=== PATIENT | female | born 1985 | race Caucasian/White ===

== ENCOUNTER 2023-11-20 09:05 | Day surgery (SDC) | payer OTHER, SELFPAY ==
[2023-11-20] VITALS (15 sets, daily range): BP systolic 113–137; BP diastolic 7–88; PULSE 59–98; RESP 13–18; TEMP 36.6–36.7; O2SAT 98–100
--- NOTE | ~2023-11-20 | US_ITS ---
Limited ABDOMINAL ULTRASOUND Ordering provider: Tonio De León APRN History: . possible acute cholecystitis . Comparison: None. FINDINGS: LIVER: Normal size and echotexture. No focal hepatic lesions or perihepatic fluid collections are clarke ntified. Portal vein flow is hepatopetal GALLBLADDER: Cholelithiasis. Stone is seen measuring 1.2 x 0.6 x 1.4 cm. The wall thickness is 3.7 mm . A negative sonographic Lopez's sign was noted. BILIARY DUCTS: No evidence for intra or extrahepatic biliary dilation. Common bile duct measures 5 mm in diameter which is within normal limits. PANCREAS: Partially seen. Visualized portion is normal. SPLEEN: Normal size, echotexture and contour and mauricio UPPER ABDOMINAL AORTA: Normal in caliber. IVC: Patent. FREE FLUID: None. IMPRESSION: Cholelithiasis with no definite cholecystitis. Reviewed, dictated and finalized at location A.
--- NOTE | ~2023-11-20 | CT_ITS ---
CT of the Abdomen and Pelvis: Indication: Abdominal pain Technique: 2.5 mm axial scans were obtained through the abdomen and pelvis following intravenous adm inistration of 100 cc of Omnipaque 350. Dose reduction technique was used on this scan by utilizing a utomated exposure control and iterative reconstruction technique. The dose-length product (DLP) was 5 46.02 mGy-cm. Findings: Scans through the lung bases are unremarkable. The liver, spleen, pancreas, adrenals and kidneys are within normal limits. Probably mild gallbladder wall thickening. No evidence of aortic aneurysm. No lymphadenopathy. No bowel obstruction or bowel wall thickening. There is no evidence to suggest acute appendicitis. Images through the pelvis were performed. Urinary bladder unremarkable. No pelvic mass seen. No ascit es. Impression: Suspected mild gallbladder wall thickening. Consider acute cholecystitis. Consider HIDA scan and/or u ltrasound to further evaluate the gallbladder. Reviewed, dictated and finalized at [facility]. Impression: Suspected mild gallbladder wall thickening. Consider acute cholecystitis. Consi nubia HIDA scan and/or ultrasound to further evaluate the gallbladder.
--- NOTE | 2023-11-20 09:27 | ED.ABDPAIN ---
HPI - Abdominal Pain General Chief Complaint: Abdominal Pain <Tonio De León APRN - Last Filed: 11/20/23 13:40> Stated Complaint: abd pain <Tonio De León APRN - Last Filed: 11/20/23 13:40> Time Seen by Provider: 11/20/23 09:17 <Tonio De León APRN - Last Filed: 11/20/23 13:40> Source: patient <Tonio De León APRN - Last Filed: 11/20/23 13:40> Mode of arrival: ambulatory <Tonio De León APRN - Last Filed: 11/20/23 13:40> Limitations: no limitations <Tonio De León APRN - Last Filed: 11/20/23 13:40> History of Present Illness HPI narrative: Nevaeh is a 38-year-old female patient presenting to the ER today with complaints of generalized abdominal pain that started at 12:30 a.m. this morning. She reports the pain is a pressure pain in the abdomen and is radiating into her back and is stabbing on the right side. Rates her pain currently a 7/10. She denies any history of any abdominal surgery but does have a past medical history of a T&A, sinuplasty, 2 vaginal bursa, and GERD. She does report nausea associated with this abdominal pain however she has had no vomiting or diarrhea. She denies any fever or urinary symptoms as well. Last bowel movement was this morning and states that that was normal for her other was no blood in her stool. Last menstrual period was November 11, 2023. <Tonio De León APRN - Last Filed: 11/20/23 13:40> Related Data Allergies/Adverse Reactions: Allergies Allergy/AdvReac Type Severity Reaction Status Date / Time No Known Allergies Allergy Mild Unverified 08/06/11 17:20 <Tonio De León APRN - Last Filed: 11/20/23 13:40> Review of Systems Review of Systems: Pertinent positives per HPI. Patient denies any fever, chills, rash, headache, visual changes, dizziness, cough, runny nose, sore throat, shortness of breath, chest pain, palpitations,vomiting, diarrhea, constipation or any urinary issues. <Tonio De León APRN - Last Filed: 11/20/23 13:40> PMFSH Comments At the time of my signature, I reviewed and agree with the nursing past medical, surgical, social, and family history. There is no relevant family history pertinent to the patient complaint. <Tonio De León APRN - Last Filed: 11/20/23 13:40> Exam Narrative: General: Well-developed, well nourished, in no apparent distress. Head: Normocephalic, atraumatic. Cardio: Regular rate and rhythm, s1 and s2 normal, no murmur appreciated. Resp: Clear to auscultation bilaterally, no rhonchi, rales, wheezing or rubs. Abdomen: Soft, pliable, non-distended, bowel sounds present in all quadrants, generalized tender to palpation, ttp over right lower back/flank no organomegly, no CVAT tenderness. <Tonio De León APRN - Last Filed: 11/20/23 13:40> Course Course Emergency Course: Portions of this record may have been created with voice recognition software. <Tonio De León APRN - Last Filed: 11/20/23 13:40> MELTER SUPERVISOR [employer]CE/PA Physician Supervision This visit was performed by both a physician and an APC. I performed all aspects of the MDM as documented. <Yung Zepeda MD - Last Filed: 11/20/23 18:57> Vital Signs Vital signs: Vital Signs Temperature 98.0 F 11/20/23 09:14 Pulse Rate 98 11/20/23 09:14 Respiratory Rate 18 11/20/23 09:14 Blood Pressure 137/83 11/20/23 09:14 Pulse Oximetry 99 11/20/23 09:14 Oxygen Delivery Room Air 11/20/23 09:14 Temperature 97.8 F 11/20/23 14:00 Pulse Rate 78 11/20/23 14:00 Respiratory Rate 18 11/20/23 14:00 Blood Pressure 127/74 11/20/23 14:00 Pulse Oximetry 100 11/20/23 14:00 Oxygen Delivery Room Air 11/20/23 14:00 Vital signs reviewed <Tonio De León APRN - Last Filed: 11/20/23 13:40> Vital Signs Temperature 98.0 F 11/20/23 09:14 Pulse Rate 98 11/20/23 09:14 Respiratory Rate 18 11/20/23 09:14 Blood Pressure 137/83 11/19
[2023-11-20] MEDS: ONDANSETRON INJ 4 MG/2 ML VIAL IV PUSH ×2 (09:55→12:45)
[2023-11-20] MEDS: MORPHINE SULFATE (*CRX) 4 MG/ML INJ IV PUSH ×2 (09:55→12:45)
[2023-11-20 09:59] LABS: Basophils Percent Auto 0.6 % (0.2-1.2); Eosinophils Absolute Auto 0.1 K/mm3 (0-0.3); Eosinophils Percent Auto 1.9 % (0-4.4); Hematocrit 42.5 % (37.0-47.0); Hemoglobin 13.8 g/dL (12.0-15.0); Immature Granulocyte Absolute 0.01 K/mm3 (0.00-0.031); Immature Granulocyte Percent A 0.1 % (0-0.5); Lymphocytes Absolute Auto 2.68 K/mm3 (0.9-3.2); Lymphocytes Percent Auto 37.1 % (18.3-44.2); Mean Corpuscular HGB Conc 32.5 g/dl (32-36); Mean Corpuscular Hemoglobin 27.8 pg (26-34); Mean Corpuscular Volume 85.5 fl (80-100); Mean Platelet Volume 10.5 fl (7.4-10.4); Monocytes Absolute Auto 0.3 K/mm3 (0.1-0.6); Monocytes Percent Auto 4.7 % (2.6-8.5); Neutrophils Percent Auto 55.6 % (45.5-73.1); Platelet Count Result 322 k/mm3 (150-375); Red Blood Count 4.97 M/mm3 (4.2-5.4); Red Cell Distribution Width 13.5 % (11.5-14.5); White Blood Count 7.2 K/mm3 (4.5-10.0)
[2023-11-20 10:01] LABS: Appearance Urine Clear (Clear); Bilirubin Urine Negative (Negative); Blood Urine Negative (Negative); Color Urine Yellow (Yellow); Glucose Urine UA Negative (Negative); Ketones Urine Negative (Negative); Leukocyte Esterase Ur Negative LEU/UL (Negative); Nitrate Urine Negative (Negative); Protein Urine Negative (Negative); Specific Grav Ur 1.008 (1.001-1.035); Urobilinogen Urine 0.2 mg/dL (<2.0); pH Urine 7.5 (5.0-9.0)
[2023-11-20 10:05] LABS: Add Urine Microscopic? NO
[2023-11-20 10:13] LABS: Alanine Aminotransferase 22 U/L (6-35); Albumin Level 4.8 g/dL (3.5-5.1); Alkaline Phosphatase 89 U/L (38-126); Anion Gap 9 mmol/L (4-12); Aspartate Amino Transferase 25 U/L (14-36); Bilirubin,Total 0.7 mg/dL (0.2-1.3); Blood Urea Nitrogen 9 mg/dL (7-17); Calcium 10.1 mg/dL (8.4-10.2); Carbon Dioxide 28 mmol/L (22-30); Chloride 102 mmol/L (98-107); Estimated CRCL calculation 110 ml/min; Estimated Glomerular Filt Rate > 60; Glucose 98 mg/dL (65-110); Lipase 47 U/L (23-300); Potassium 3.8 mmol/L (3.4-5.0); Sodium 139 mmol/L (137-145)
--- NOTE | 2023-11-20 13:28 | PM.HPGS ---
History of Present Illness History of Present Illness Consent: Risks, benefits, and alternatives have been discussed and questions answered. Patient agrees to proceed with procedure. Chief complaint: abd pain Narrative: Nevaeh Lerner is a 38 year old female who presented to the ER today with complaints of RUQ abdominal pain x 12 hours. Pain radiates across her entire abdomen and into her mid upper back. She has a history of GERD and reports this is much different than her reflux symptoms. She reports nausea, but no vomiting. Pain is aggravated by deep breathing. She had a similar episode of pain that brought her into the ER about 13 years ago, but not since. She reports eating spicy chicken yesterday around 3pm and then breakfast cookies before bed. She woke up around midnight with abdominal pain that got worse throughout the morning. She came into the ER for evaluation. Labs in the ER were unremarkable. CT scan abdomen and pelvis showed mild gallbladder wall thickening, possible acute cholecystitis. RUQ US showed cholelithiasis with a gallstone measuring up to 1.4 cm, no definite evidence of cholecystitis. Our service was consulted by the ED physician as she was having persistent pain even after receiving IV morphine. No previous abdominal surgeries. Review of Systems Review of Systems: All systems reviewed & are unremarkable except as noted in HPI and below Meds Home Medications and Allergies Allergies Allergy/AdvReac Type Severity Reaction Status Date / Time No Known Allergies Allergy Mild Unverified 08/06/11 17:20 Vital Signs Vital Signs - 24 hr 11/20/23 09:14 11/20/23 09:55 11/20/23 10:40 Temperature 98.0 F Pulse Rate 98 82 80 Respiratory Rate 18 18 18 Blood Pressure 137/83 132/75 130/78 Pulse Oximetry 99 100 98 Oxygen Delivery Room Air 11/20/23 11:22 Temperature 98.1 F Pulse Rate 78 Respiratory Rate 18 Blood Pressure 123/7 L Pulse Oximetry 98 Oxygen Delivery Exam Const: General: comfortable and no acute distress Nutritional Appearance: average body habitus Orientation/consciousness: patient oriented x3 HENMT: Head: normocephalic and atraumatic Ears: hearing grossly normal bilaterally Mouth: Yes moist mucous membranes Eyes: General: appearance normal, both eyes and all related structures Pupils: Equal, round and reactive pupils present Neck: Neck: normal visual inspection and full ROM Resp: Effort & Inspection: no respiratory distress Auscultation: clear to auscultation bilaterally Cardio: Rate: regular rate Rhythm: regular rhythm Heart sounds: S1 normal heart sound present and S2 normal heart sound present Peripheral pulses: Peripheral pulses 2+ throughout GI: Inspection: non-distended, no scars and no visible herniation GI Palp: Yes Soft to palpation, Yes Tenderness to palpation present (GI) (RUQ), Yes Guarding due to palpation present (GI) (RUQ), Yes No hepatosplenomegaly present, No Rebound tenderness present and Yes Other GI palpation findings present (+Lopez's sign) Percussion: Yes normal to percussion Auscultation: normal bowel sounds Skin: General skin exam: normal color Neuro: General: moves all extremities and no focal motor deficits Speech: normal speech Motor exam (neuro): 5/5 motor strength present throughout Extrem: General: normal to inspection and no edema Psych: Mental Status: mental status grossly normal Attitude: cooperative Insight: Good insight present (Psych) Judgement: Good judgement present (Psych) Results Results Additional studies: ITS Impressions Abdomen/Pelvis CT 11/20/23 11:12 Impression: Suspected mild gallbladder wall thickening. Consider acute cholecystitis. Consider HIDA scan and/or ultrasound to further evaluate the gallbladder. Abdomen Ultrasound 11/20/23 12:40 IMPRESSION: Cholelithiasis with no definite cholecystitis. Assessment and Plan Assessment and plan (1) Cholelithiasis: Qualifiers: Bili
--- NOTE | 2023-11-20 13:44 | WPDANESEPPF ---
Anes - Initial Pre Proc Eval Procedure: Operation Date: 11/20/23 14:00 Proposed Procedures p Laparoscopic Cholecystectomy - Nathalie Pham MD Date/Time: 11/20/23 13:44 Surgeon: Nathalie Pham MD Pre Op Diagnosis: abd pain Patient Data Age: 38 Gender: F Height: 1.57 m Weight: 83.3 kg Last Vital Signs Temp 98.0 F 11/20/23 13:32 Pulse 78 11/20/23 13:32 Resp 18 11/20/23 13:32 BP 124/88 11/20/23 13:32 Pulse Ox 99 11/20/23 13:32 O2 Del Method Room Air 11/20/23 09:14 Allergies Allergy/AdvReac Type Severity Reaction Status Date / Time No Known Allergies Allergy Mild Unverified 08/06/11 17:20 Laboratory Tests 11/20/23 09:51 WBC 7.2 K/mm3 (4.5-10.0) RBC 4.97 M/mm3 (4.2-5.4) Hgb 13.8 g/dL (12.0-15.0) Hct 42.5 % (37.0-47.0) MCV 85.5 fl (80-100) MCH 27.8 pg (26-34) MCHC 32.5 g/dl (32-36) RDW 13.5 % (11.5-14.5) Plt Count 322 k/mm3 (150-375) MPV 10.5 H fl (7.4-10.4) Immature Gran % (Auto) 0.1 % (0-0.5) Neut % (Auto) 55.6 % (45.5-73.1) Lymph % (Auto) 37.1 % (18.3-44.2) [place] % (Auto) 4.7 % (2.6-8.5) Eos % (Auto) 1.9 % (0-4.4) Baso % (Auto) 0.6 % (0.2-1.2) Lymph # (Auto) 2.68 K/mm3 (0.9-3.2) [place] # (Auto) 0.3 K/mm3 (0.1-0.6) Eos # (Auto) 0.1 K/mm3 (0-0.3) Baso # (Auto) 0.0 K/mm3 (0.0-0.1) Abs Immat Gran (auto) 0.01 K/mm3 (0.00-0.031) Absolute Neuts (auto) 4.0 K/mm3 (1.3-6.7) Absolute Nucleated RBC 0.000 K/mm3 (0.0-0.012) Nucleated RBC % 0.0 % (0.0-0.2) Sodium 139 mmol/L (137-145) Potassium 3.8 mmol/L (3.4-5.0) Chloride 102 mmol/L (98-107) Carbon Dioxide 28 mmol/L (22-30) Anion Gap 9 mmol/L (4-12) BUN 9 mg/dL (7-17) Creatinine 0.60 L mg/dL (0.7-1.0) Estim Creat Clear Calc 110 ml/min Estimated GFR > 60 (59 - ) Glucose 98 mg/dL (65-110) Calcium 10.1 mg/dL (8.4-10.2) Total Bilirubin 0.7 mg/dL (0.2-1.3) AST 25 U/L (14-36) ALT 22 U/L (6-35) Alkaline Phosphatase 89 U/L (38-126) Total Protein 8.0 g/dL (6.3-8.2) Albumin 4.8 g/dL (3.5-5.1) Lipase 47 U/L (23-300) Urine Color Yellow (Yellow) Urine Appearance Clear (Clear) Urine pH 7.5 (5.0-9.0) Ur Specific [place] 1.008 (1.001-1.035) Urine Protein Negative mg/dL (Negative) Urine Glucose (UA) Negative mg/dL (Negative) Urine Ketones Negative mg/dL (Negative) Ur Blood (Man) Negative (Negative) Urine Nitrate Negative (Negative) Urine Bilirubin Negative (Negative) Urine Urobilinogen 0.2 mg/dL (<2.0) Leukocyte Esterase Rfl Negative SHARI/UL (Negative) Patient hx anesthesia problems: none Family hx anesthesia problems: none Results Review: All pre-operative results and documents have been reviewed as part of the pre-operative evaluation. Anes - Eval Final PreProcedure Day of Procedure 11/20/23 13:44 Patient weight: overweight Heart: regular rate and rhythm Lungs: clear to auscultation Airway: Mallampati scale class II Neurological: alert and oriented Last oral intake: >/= 8 hours ASA classification: II Emergent: no Anesthetic plan: proceed Anesthesia type and monitoring: general ETT and standard monitoring Results Review: All pre-operative results and documents have been reviewed as part of the pre-operative evaluation. Pt active w [employer] workouts, no cp or sob. Informed Consent: The patient's anesthetic plan and its attendant risks and benefits were discussed with the patient/family/POA. Questions were solicited and answers provided to the satisfaction of the patient/family/POA.
[2023-11-20] MEDS: LACTATED RINGERS 1,000 ML 30 ML IV CONT ×2 (14:00→18:30)
[2023-11-20] MEDS: SCOPOLAMINE 1 MG PATCH 1 PATCH TRANSDERM (14:00)
[2023-11-20] MEDS: fentaNYL CITRATE INJ (*CRX) 100 MCG/2 ML VIAL 50 MCG IV PUSH (15:34)
--- NOTE | 2023-11-20 16:27 | SUR.PREOP ---
1600: patient sleeping. family at bedside. notified of procedural wait time. family voices understanding.
--- NOTE | 2023-11-20 16:37 | WPDHPUPDATE1 ---
History and Physical Update Update Date/Time: 11/20/23 16:37 History and Physical has been reviewed, including an updated exam of the patient. There are NO changes in the patient's condition. Risks, benefits, and alternatives have been discussed and questions answered. Patient agrees to proceed with procedure.
--- NOTE | 2023-11-20 17:26 | SUR.PREOP ---
1725: patient sleeping. family at bedside. notified of procedural wait time. family voices understanding.
--- NOTE | 2023-11-20 17:44 | SUR.PREOP ---
Pt. ambulated to bathroom at 1740 and voided unmeasured amount.
[2023-11-20] MEDS: ceFAZolin 2 GM/D5W 50 ML 2 GM/50 ML BAG IVPB (18:13)
[2023-11-20] MEDS: LIDOCAINE HCL 1% LOCAL INJ 20 ML VIAL 30 ML INFILTRATE (18:46)
[2023-11-20] MEDS: BUPIVACAINE/EPINEPHRINE 0.5% 10 ML VIAL 30 ML INFILTRATE (18:46)
[2023-11-20] MEDS: KETOROLAC 30 MG/ML VIAL (*BKC) IV PUSH (19:03)
--- NOTE | 2023-11-20 19:45 | W.PM.PROC2 ---
Procedure Note - Detailed Date of Procedure 11/20/23 Pre-op Diagnosis Acute cholecystitis secondary to cholelithiasis Post-op Diagnosis Same Procedure Performed Laparoscopic cholecystectomy Surgeon Eder Godfrey MD Anesthesia General Indications Patient is a 8-year-old female presented with complaints of right upper quadrant epigastric abdominal pain for about 24hours. Workup in emergency room showed acute cholecystitis. Patient showed gallstones. She presents now for an urgent laparoscopic cholecystectomy. Findings Gallbladder was distended and had mild acute inflammation and edema with some minimal redness. Gallstones were noted within the gallbladder. Description of Procedure After informed consent was obtained patient brought to the operating room she was placed supine position and general endotracheal anesthesia was administered. The abdomen was then prepped and draped in usual sterile fashion and a time-out was then performed correctly identifying the patient as well as the procedure to be performed verifying he was given antibiotics. I then entered the abdomen left upper quadrant utilizing a 5mm Optiview port. Once inside the abdomen insufflated to adequate pneumoperitoneum of 15mmHg of CO2. I could see the adhesions around the umbilicus I placed a 5mm umbilical trocar port and then the laparoscopic switched over to this port site. Looking the upper portions of the abdomen then placed in the epigastric 10mm trocar port and 2 right lateral subcostal 5mm trocar ports all under direct visualization the gallbladder was distended and had some mild edema and slight erythema to the gallbladder wall. With a laparoscopic grasper I was able to hold the gallbladder at the dome and elevate the gallbladder over the right half of the towards the right shoulder. Second grasper was used to hold the gallbladder at the infundibulum. I then proceeded to strip down the visceroperitoneum of the gallbladder until I identified the cystic duct. Cystic duct was then dissected out circumferentially. Cystic artery was identified and was circumferentially dissected out as well. Posterior wall the gallbladder at the infundibulum was then dissected off the liver into the critical view was obtained. At this point I then placed 2 clips proximally cystic duct and 2 clips distally high on infundibular gallbladder. Cystic duct was then divided Endo Sandi. In similar fashion cystic artery clipped and divided as well. Gallbladder was then resected off liver electrocautery. No bile or gallstones were spilled. I then placed the gallbladder into an Endo-Catch bag and brought out through the epigastric port site. Gallbladder and contents were sent to pathology for examination. I then irrigated out the right upper quadrant abdomen gallbladder fossa with copious amounts and sterile saline solution. Hemostasis was excellent. There is no evidence of bile leak. I then aspirated the fluid from the right upper quadrant the abdomen from the pelvis. I then removed all the trocar ports under visualization all port sites appeared hemostatic. I then allowed the abdomen decompress. I then irrigated the port sites sterile saline solution hemostasis was good. I then closed the epigastric 10mm trocar port fascial defect utilizing 0 Vicryl suture. The skin incision all the port sites were then approximated utilizing a running subcuticular 4-0 Monocryl suture. The incisions were then cleaned the skin glue sterile dressings were applied. The patient tolerated the procedure well no complications. All sponges, needles, and instrument counts were correct at the end procedure. EBL was _ 25 __cc. The patient was awakened and taken to recovery in stable and satisfactory condition. Implants None Estimated Blood Loss 25 Drains No Packing No Pathology Yes (Gallbladder and gallstones sent to pathology) Complications No immediate complications Condition Stable Disposition PACU JENNIFER Doan
[2023-11-20] MEDS: fentaNYL CITRATE INJ (*CRX) 100 MCG/2 ML VIAL 25 MCG IV PUSH (19:55)
--- NOTE | 2023-11-20 20:54 | SUR.PHASEII ---
MD Romero contacted about pt request for pain pill prior to discharge. New orders for RN To give 5mg oxycodone PO once.
[2023-11-20] MEDS: oxyCODONE HCL (*CRX) 5 MG TAB IR PO (20:59)
== END 2023-11-20 21:26 | disposition home or self-care (01) ==
LOC: ANHED 12:54 → ANHSURGERY 13:04
PROVIDERS: Surgery; Emergency Provider Nurse Practitioner Family; Visit Provider Surgery
PROC: 0FT44ZZ Resection of Gallbladder, Percutaneous Endoscopic Approach (ICD-10-PCS; CPT 47562; principal; 2023-11-20 14:00)
DX: K80.10 Calculus of gallbladder with chronic cholecystitis without obstruction (principal); K21.9 Gastro-esophageal reflux disease without esophagitis
CPT/HCPCS: 47562; 36415; 74177; 76705; 80053; 81003; 81025; 83690; 85025; 88304; 96374; 96375; 96376; 99285; A9270; J0690; J1100; J1596; J1885; J2250; J2270; J2405; J2704; J2710; J3010; J7030; J7120; Q9967

== ENCOUNTER 2025-04-17 12:31 | Emergency (ER) | payer OTHER, SELFPAY ==
--- OUTSIDE RECORDS SUMMARY | 2001-03-24 03:30 | XMS_ITS | Continuity of Care Document ---
Author Organization [facility] Address [address] [place] [address] Phone Care Team Providers Care Unemployment Insurance Director Name Role Phone Fabien Sargent DO Unavailable Unavailable Advance Directives Directive Yes / No Effective Date File Name No Information Encounters Encounter Description Practice Location Reason(s) For Visit Diagnoses Date Provider Providers Copied on Encounter [facility], [address], [place], [place], [id number], tel:[phone] [facility] No Information Arie George. [address] [place], [address], . tel: [phone] Family History Family Member Type Diagnosis Age At Onset No Information Payers Payer name Insurance type Covered democrat ID Authoriza tion(s) No Information Social History Type Description Quantity Date Captured Comments Sex Female Smoking Status No Information Chief Complaint And Reason For Visit No Information Reason For Referral Reason For Referral No Information History Of Present Illness Encounter Date Complaint History Of Prese nt Illness No Information Functional Status Date Functional Assessmen t No Information Instructions Date Instruction Additional Infor mation No Information Assessments Type Assessment Date No Information Patient Care Teams Name Effective Dates (start - stop) Status Members No Information
--- OUTSIDE RECORDS SUMMARY | 2001-03-24 03:30 | XMS_ITS | Continuity of Care Document ---
Author Organization [facility] Address [address] [place] [address] Phone Care Team Providers Care Telegraph Operator Name Role Phone Fabien Sargent DO Unavailable Unavailable Advance Directives Directive Yes / No Effective Date File Name No Information Encounters Encounter Description Practice Location Reason(s) For Visit Diagnoses Date Provider Providers Copied on Encounter [facility], [address], [place], [place], [id number], tel:[phone] [facility] No Information Arie George. [address] [place], [address], . tel: [phone] Family History Family Member Type Diagnosis Age [...]
[2025-04-17] VITALS (11 sets, daily range): BP systolic 90–165; BP diastolic 65–91; PULSE 88–115; RESP 15–20; TEMP 36.9; O2SAT 98–100
--- NOTE | ~2025-04-17 | XR_ITS ---
EXAMINATION: XR chest 2V, 04/17/2025 15:15 TIRE REPAIRMAN HISTORY: palpitations COMPARISON: No comparisons available. Technique: 2 views obtained. Findings: The lungs are clear, no effusion. No pneumothorax. Heart is normal size. Mediastinal and hilar contours are within normal limits. Bony thorax no acute abnormality. Impression: No acute cardiopulmonary abnormality. Reviewed, dictated and finalized at location P. REPAIRMAN Impression: No acute cardiopulmonary abnormality.
--- NOTE | ~2025-04-17 | CT_ITS ---
EXAMINATION: CTA chest PE protocol DATE: 04/17/2025 18:30 LOOM TECHNICIAN INDICATION: Chest pain TECHNIQUE: Computed tomographic angiography (CTA) of the chest was performed with 100 mL Omnipaque-350 intravenous contrast. The dose-length product was 272.56 mGy-cm. Maximum intensity projection 3D-reconstructions of the aorta and other arteries were constructed by the technologist on a separate workstation. COMPARISON: None. FINDINGS: No significant pleural or pericardial effusion. Study is technically adequate without evidence for pulmonary embolism. Heart size normal. No thoracic lymphadenopathy. No significant abnormality of the aorta. No aneurysm or dissection. Status post cholecystectomy. Fatty infiltration of the liver. No endobronchial lesions. No focal airspace consolidation. No pneumothorax. Mild thoracic spondylosis. IMPRESSION: 1. No acute cardiopulmonary disease. No evidence for pulmonary embolism. Reviewed, dictated and finalized at location O. TECHNICIAN
--- NOTE | 2025-04-17 14:39 | ECG_ITS ---
Test Date: 2025-04-17 15:09:09 [address] [place] Rate: 98 P: 40 GA: 128 QRS: 1 QRSD: 89 T: 14 QT: 333 QTc: 426 Interpretive Statements SINUS RHYTHM No previous ECG available for comparison Electronically Signed On 04-17-2025 17:59:16 [employer]A [employer]OOK by Rashid Huerta D.O
--- NOTE | 2025-04-17 14:39 | ED.ARRPALP ---
HPI - Arrhythmia/Palpitations General Chief Complaint: Arrhythmia/Palpitations Stated Complaint: multiple medical complaints Time Seen by Provider: 04/17/25 14:39 Focused HPI: This is a 39 year old female that presents to the ER for increased anxiety. Reports tingling in her hands and feet, dizziness, palpitations. Ongoing over the last couple of weeks. Reports she has been taken off of her anxiety medication recently. But has restarted it the last couple of days. Reports recent travel to [facility]. GENERAL: Well-appearing, well-nourished, and in no acute distress. HEAD: Normocephalic, atraumatic. CHEST: Clear to auscultation. ?No respiratory distress. HEART: Regular rate and rhythm.? NEURO: ?Alert and oriented x3. Patient screened in triage and initial orders placed.? ?Additional care and disposition to be based upon?diagnostic testing and treatment. Related Data Home Medications ?Medication ?Instructions ?Recorded ?Confirmed ?Last Taken ?Type bupropion HCl 150 mg 24 hr tablet, 150 mg PO QAM 12/06/23 12/06/23 Unknown History extended release risankizumab-rzaa 180 mg/1.2 mL mg subcut 12/06/23 12/06/23 Unknown History (150 mg/mL) subcut wearable injector (Skyrizi) Allergies Allergy/AdvReac Type Severity Reaction Status Date / Time No Known Allergies Allergy Mild Verified 04/17/25 13:04 [facility] Past Medical History Medical History (Updated 04/17/25 @ 14:40 by Alee Zimmerman PA-C) Anxiety Psoriasis Surgical History Surgical History (Updated 12/06/23 @ 14:42 by Edilia Castellanos CMA) Hx laparoscopic cholecystectomy 11/20/23 Dr. Eder Godfrey Social History Social History (Updated 12/06/23 @ 14:42 by Edilia Castellanos CMA) Do You Feel Safe in your Home?: Yes Lack of Transportation: No Lack of Food: Never True Current Housing: I Have Housing Concerned About Future Housing: No Difficulty Paying Gas/Electric Bills: No Difficulty Paying for Meds: No Currently Unemployed: No Education: Bachelor's Degree Difficulty w/ Childcare or Family Care: No Course Vital Signs Vital signs: Vital Signs Temperature 98.4 F 04/17/25 13:02 Pulse Rate 115 H 04/17/25 13:02 Respiratory Rate 20 04/17/25 13:02 Blood Pressure 165/86 H 04/17/25 13:02 Pulse Oximetry 99 04/17/25 13:02 Oxygen Delivery Room Air 04/17/25 13:02 Temperature 98.4 F 04/17/25 13:02 Pulse Rate 115 H 04/17/25 13:02 Respiratory Rate 20 04/17/25 13:02 Blood Pressure 165/86 H 04/17/25 13:02 Pulse Oximetry 99 04/17/25 13:02 Oxygen Delivery Room Air 04/17/25 13:02 Discharge Plan Discharge Patient Language: Ukrainian Prescriptions: No Action Skyrizi 180 mg/1.2 mL (150 mg/mL) wearable injector subcut bupropion HCl 150 mg tablet extended release 24 hr 150 mg PO QAM Follow-up/Referrals: UNKNOWN,DOCTOR [Primary Care Provider]
[2025-04-17 15:16] LABS: Hematocrit 39.8 % (37.0-47.0); Hemoglobin 13.2 g/dL (12.0-15.0); Immature Granulocyte Percent A 0.2 % (0-0.5); Lymphocytes Absolute Auto 3.03 K/mm3 (0.9-3.2); Mean Corpuscular HGB Conc 33.2 g/dl (32-36); Mean Corpuscular Hemoglobin 26.7 pg (26-34); Mean Corpuscular Volume 80.4 fl (80-100); Nucleated Red Blood Cells Absolute Auto 0.000 K/mm3 (0.0-0.012); Nucleated Red Blood Cells Perc 0.0 % (0.0-0.2); Platelet Count Result 306 k/mm3 (150-375); Red Blood Count 4.95 M/mm3 (4.2-5.4); White Blood Count 6.5 K/mm3 (4.5-10.0)
[2025-04-17 15:27] LABS: Alanine Aminotransferase 101 U/L (6-35); Albumin Level 4.4 g/dL (3.5-5.1); Alkaline Phosphatase 102 U/L (38-126); Anion Gap 9 mmol/L (4-12); Aspartate Amino Transferase 67 U/L (14-36); Bilirubin,Total 0.4 mg/dL (0.2-1.3); Blood Urea Nitrogen 9 mg/dL (7-17); Calcium 9.5 mg/dL (8.4-10.2); Carbon Dioxide 24 mmol/L (22-30); Chloride 105 mmol/L (98-107); Estimated CRCL calculation 132 ml/min; Estimated Glomerular Filt Rate > 60; Glucose 91 mg/dL (65-110); Lipase 60 U/L (23-300); Potassium 3.8 mmol/L (3.4-5.0); Sodium 138 mmol/L (137-145); Total Protein 7.7 g/dL (6.3-8.2)
[2025-04-17 15:32] LABS: INR 1.0; Prothrombin Time 13.1 Seconds (11.1-14.7)
[2025-04-17 15:33] LABS: Partial Thromboplastin Time 29.3 Seconds (22.3-36.8)
[2025-04-17 15:40] LABS: Troponin I < 0.012 ng/mL (0.000-0.034)
[2025-04-17 16:00] LABS: Thyroid Stimulating Hormone Reflex < 0.015 uIU/mL (0.465-4.68)
[2025-04-17 16:39] LABS: Free T4 Free Thyroxine Reflex 4.09 ng/dL (0.78-2.19)
[2025-04-17 17:25] LABS: BEDSIDEPREGUCG Negative (Negative)
--- OUTSIDE RECORDS SUMMARY | 2025-04-17 19:33 | XMS_ITS | Clinical Summary ---
Author Organization [facility] Address [address] [place] [address] Care Team Providers Care Manager Privacy Name Role Phone Odalys Lane NP Primary Care Provider [phone] [phone] Allergies No known active allergies Medications Ergocalciferol 50 MCG (1999 UT) Tab Take 2,000 Units by mouth daily. Active [place]-3 Fatty Acids (FISH OIL BURP-LESS OR) Active Probiotic Product (PROBIOTIC-10 OR) Active hydrOXYzine (ATARAX) 25 MG tablet Take 1 tablet (25 mg total) by mouth every 6 (six) hours as needed. 2 Active Multiple Vitamins-Minera ls (WOMENS MULTI OR) Take 1 tablet by mouth daily. Active SKYRIZI PEN 150 MG/ML Solution Auto-injector 3 Active tretinoin (RETIN-A) 0.025 % cream Apply topically nightly at bedtime. 4 Active Tapinarof (VTAMA) 1 % Cream Active Minoxidil (ROGAINE EXTRA STRENGTH) 5 % Solution Apply to affected area. Active scopolamine (TRANSDERM-SCOP ) 1 MG/3DAYS patchIndication s:Motion sickness, initial encounter Place 1 patch onto the skin every third day. 10 patch 5 Active Additional Information Patient not taking.Reason: Side effects (Patient did not care for side effects), Reported on 10/24/2024 ALPRAZolam (XANAX) 0.25 MG tabletIndicatio ns:Anxiety with flying Take 1 tablet (0.25 mg total) by mouth nightly as needed for Anxiety (flight anxiety). 5 tablet 5 Active buPROPion XL (WELLBUTRIN XL) 150 MG 24 hr tabletIndicatio ns:Generalized anxiety disorder Take 1 Tablet (150 mg) by mouth daily. 90 tablet 1 5 Active Active Problems Problem Noted Date Diagnosed Date Obesity (BMI 30-39.9) 05/06/2024 Overview (05/06/2024): Has been working on weight loss. She has been working on increasing her fiber in her diet. She did not initially realize she was not getting enough fiber per day. She is also doing yoga 3-4 times a week. Assessment & Plan (05/06/2024 8:09 AM GENERAL UTILITY WORKER): Continue to work on diet and lifestyle changes to help with weight loss. Ganglion cyst of dorsum of left wrist 03/06/2023 Panic attack 06/25/2021 Overview (05/06/2024): No recent panic attacks. Has PRN hydroXYZine that she does not need to use often Assessment & Plan (05/06/2024 8:13 AM GENERAL UTILITY WORKER): Chronic condition is stable. No med changes need at this time. Resume HydroXYZine PRN. Tolerates well without side effects. Mixed anxiety and depressive disorder 05/27/2019 Overview (05/06/2024): Doing well with Bupropion 150 mg daily. Denies SI/HI. Denies side effects of medication. Assessment & Plan (05/06/2024 8:13 AM GENERAL UTILITY WORKER): Chronic condition that is controlled. No changes needed at this time. Continue Wellbutrin XL 150mg daily. Psoriasis 05/27/2019 Overview (05/06/2024): Chronic condition. Follows with dermatology for management of her psoriasis. Currently very well-controlled with Skyrizi and Tapinarof cream. Assessment & Plan (05/06/2024 8:06 AM GENERAL UTILITY WORKER): Chronic condition. Stable. Follows with dermatology for med management. Resolved Problems Problem Noted Date Diagnosed Date Resolved Date (spontaneous vaginal delivery) 07/25/2022 03/06/2023 arrhythmia affecting p regnancy, antepartum 05/12/2022 03/06/2023 Multigravida of advanced mat ernal age in third trimester 02/02/2022 03/06/2023 Anxiety 11/29/2019 03/06/2023 Overview (05/12/2021): atarax Encounters Date Type Department Care Team Description 04/17/2025 Telephone [facility] Family Medicine - [place] [address] [facility] [address] [place], [place] [id number] Odalys [address] NP Information 01/23/2025 Scan [facility] HE[facility] INFO SRVCS Scanned, Doc Med Group from Last 3 Months Immunizations Immunization Administration Dates Next Due Fluzone 6 Months+ Quad (0.5 mL Prefilled Syringe) 03/04/2022 Influenza (Generic) 03/31/2020 Influenza Adult (Generic) 03/13/2024,04/20/2020, 04/26/2019 Td (TDVAX) 12/06/2001 Tdap (Generic) 04/26/2022,09/19/2019 Family History Medical History Relation Comments Alcohol Abuse Father Cancer Father kidney Early Father Stage 4 Kidney c ancer Stroke Maternal Grandmother Arthritis Mother Depression Mother Hypertension Mother Mental Health Mother Miscarriages / Stillbirths Mother Miscarriages / Stillbirths Paternal Grandmother Relation Status Comments Father Maternal Grandmother Mother Alive Paternal Grandmother Social History Tobacco Use Types Packs/Day Years Used Date Smoking Tobacco: Never Passive Smoke Exposure: Never Smokeless Tobacco: Never Tobacco Cessation:Counseling Given: Not Answered Comments:Never Smoked Alcohol Use Standard Drinks/Week Comments Not Currently 0 (1 standard drink = 0.6 oz pur e alcohol) none PHQ-2 Answer Date Recorded Patient Health Questionnaire-2 Score 0 10/09/2024 Comments No Sex and Gender Information Value Date Recorded Sex Assigned at Female 10/09/2024 1:05 PM CDT Legal Sex Female 8:25 AM GENERAL UTILITY WORKER Gender Identity Female 10/09/2024 1:05 PM CDT Sexual Orientation Not on file Last Filed Vital Signs Vital Sign Reading Time Taken Comments Blood Pressure 92/70 10/24/2024 1:29 PM CDT Pulse 100 10/24/2024 1:29 PM CDT Temperature 36.9 C (98.4 F) 10/24/2024 1:29 PM CDT Respiratory Rate 16 10/24/2024 1:29 PM CDT Oxygen Saturation 98% 10/24/2024 1:29 PM CDT Inhaled Oxygen Concentration - - Weight 81.6 kg (180 lb) 10/24/2024 1:29 PM CDT Height 157.5 cm (5' 2) 10/24/2024 1:29 PM CDT Body Mass Index 32.92 10/24/2024 1:29 PM CDT Plan of Treatment Health Maintenance Due Date Last Done Comments Hepatitis B Vaccines (1 of 3 - 19+ 3-dose series) 2006 HPV Vaccines (1 - 3-dose SCDM series) 2014 Cervical Cancer Screening Pap Smear (Age 30 to 64) Every 3 Years 07/30/2023 07/30/2020, 07/30/2020 COVID-19 Vaccine ( season) 2025 04/14/2022, 04/29/2021, 08/28/2020, Additional history exists Influenza Adult (#1) 2025 03/13/2024, 03/04/2022, 04/20/2020, Additional history exists Annual Physical 05/06/2025 05/06/2024, 03/09/2022, 05/12/2021 Cervical Cancer Screening Pap with HPV Testing (Age 30 to 64) Every 5 Years 12/02/2027 12/01/2022, 07/30/2020 Cervical Cancer Screening with HPV 12/02/2027 Hepatitis C 03/12/2030 Postponed from 2005 (Awaiting Documentation) DTaP, Tdap and Td Vaccines (4 - Td or Tdap) 04/26/2032 04/26/2022, 09/19/2019, 12/06/2001 PHQ-2 (Physician [place]) Completed 10/09/2024 Hepatitis A Vaccines Aged Out No long er eligible based on patient's age to complete this topic Meningococcal B Vaccine Aged Out No l onger eligible based on patient's age to complete this topic Meningococcal Vaccine Aged Out No brenda marky eligible based on patient's age to complete this topic Pneumococcal Vaccine: Pediatrics (0 to 5 Years) and At-Risk Patients (6 to 49 Years) Aged Out No longer eligible based on patient's age to complete this topic RSV Immunizations Under 20 Months Aged Out No longer eligible based on patient's age to complete this topic Procedures Procedure Name Priority Date/Time Associated Diagnosis Comments OUTSIDE CYTOPATH CERV/VAG INTERPRET (PAP) Routine 12/01/2022 OUTSIDE CYTOPATH CERV/VAG INTERPRET (PAP) (SCAN ORDER) 07/30/2020 from Last 3 Months or Most Recently Relevant to Health Maintenance Results * PAP SMEAR WITH HPV (12/01/2022) 12/01/2022 us Doc Med Group Scanned SCANNING Final Resu lt [facility] ONBASE * OUTSIDE CYTOPATH CERV/VAG INTERPRET (PAP) (07/30/2020) 07/30/2020 Narrative 07/30/2020 Ordered by an unspecified provider. us Documents Scanned SCANNING Final Result from Last 3 Months or Most Recently Relevant to Health Maintenance Insurance [facility] Care Teams Manager Privacy Relationship Specialty Start Date End Date Odalys Lane NP [address] [place] [address] PCP - General NURSE PRACTITIONER 05/11/21
--- OUTSIDE RECORDS SUMMARY | 2025-04-17 19:33 | XMS_ITS | Encounter Summary ---
Author Organization [facility] Address [facility] [place] [address] Care Team Providers Care Carroting Machine Operator Name Role Phone Odalys Lane NP Primary Care Provider [phone] Encounter Details Date Type Department Care Team (Late st Contact Info) Description 03/27/2023 [employer] Message Enc [facility] Medical Group Family Medicine - [place] [address] [facility] [address] [place] [phone], KATI [address] [place] [address] [place] [address] Liver Enzymes Social History Tobacco Use Types Packs/Day Years Used Date Smoking Tobacco: Never Smokeless Tobacco: Never Alcohol Use Standard Drinks/Week Comments Not Currently 0 (1 standard drink = 0.6 oz pur e alcohol) PHQ-2 Answer Date Recorded Patient Health Questionnaire-2 Score 2 09/02/2022 Comments No Sex and Gender Information Value Date Recorded Sex Assigned at Female 10/09/2024 1:05 PM CDT Legal Sex Female 8:25 AM PIT CLERK Gender Identity Female 10/09/2024 1:05 PM CDT Sexual Orientation Not on file documented as of this encounter Plan of Treatment Not on file documented as of this encounter Visit Diagnoses Not on filedocumented in this encounter Additional Health Concerns Infection Onset Date Last Indicated Resolved Time Respiratory Rule Out 09/18/2024 09/18/2024 025 1:19 PM CDT Influenza - Seasonal 09/18/2024 09/18/2024 025 7:55 PM CDT Assessment Noted Time PHQ-9 Depression Total Score: 8 09/03/19 23 10:00 AM CDT documented as of this encounter Care Teams Carroting Machine Operator Relationship Specialty Start Date End Date Odalys Lane NP [address] [place] [address] [place] [address] PCP - General NURSE PRACTITIONER 05/11/21 documented as of this encounter
--- OUTSIDE RECORDS SUMMARY | 2025-04-17 19:33 | XMS_ITS | Encounter Summary ---
Author Organization [facility] Address [facility] [place] [address] Care Team Providers Care Stores Clerk Name Role Phone Odalys Lane NP Primary Care Provider [phone] Encounter Details Date Type Department Care Team (Late st Contact Info) Description 01/30/2024 Therapy Plan [facility] Physical Therapy [address] [place] [phone] Justina Javier, PT [address] [place], [place] [id number] Social History Tobacco Use Types Packs/Day Years Used Date Smoking Tobacco: Never Passive Smoke Exposure: Never Smokeless Tobacco: Never Comments:Never Smoked Alcohol Use Standard Drinks/Week Comments Not Currently 0 (1 standard drink = 0.6 oz pur e alcohol) none PHQ-2 Answer Date Recorded Patient Health Questionnaire-2 Score 0 09/21/2023 Comments No Sex and Gender Information Value Date Recorded Sex Assigned at Female 10/09/2024 1:05 PM CDT Legal Sex Female 8:25 AM [employer] NURSE Gender Identity Female 10/09/2024 1:05 PM CDT [...] documented as of this encounter Care Teams Stores Clerk Relationship Specialty Start Date End Date Odalys Lane NP [address] [place] [address] [place] [address] PCP - General NURSE PRACTITIONER 05/11/21 documented as of this encounter
--- OUTSIDE RECORDS SUMMARY | 2025-04-17 19:33 | XMS_ITS | Clinical Summary ---
Author Organization [facility] Address [address] [place] [address] Care Team Providers Care Foam Machine Operator Name Role Phone Odalys Lane [facility] Primary Care Provi nubia Source Comments [facility],non-owned Affiliates and Associated Physician Practices is amultiple site organization consisting of ambulatory clinics and hospital sitesin [place], [place], [place] and [place]. This disclosure is being madepursuant to the Care Everywhere program and may not contain all information available regarding this patient. Last updated 18.[facility] Allergies No known active allergies Medications * Be aware that medications may not be up to date on this document. Alwaysverify current medications with the patient. ASPIRIN 81 PO Take 1 tablet by mouth once daily Active Probiotic Product (Probiotic-10 Ultimate) CAPS Take 1 tablet by mouth once daily Active fish oil/omega-3 fatty acids (Promega;Cardi -Erskine 3) 1000 MG capsule Take 1 (one) capsule by mouth once daily Active Iron-Vitamin C (IRON 100/C PO) Take 1 tablet by mouth once daily Active buPROPion XL 24hr (Wellbutrin-XL ) 150 MG tablet Take 1 (one) tablet by mouth once daily 2 Active ergocalciferol (Drisdol) 200 MCG (8000 UNITS)/ML drops Take 1 mL by mouth once daily Active Ergocalciferol 50 MCG (2000 UT) Take 2,000 Units by mouth once daily Active hydrOXYzine HCl (Atarax) 25 MG tablet Take 1 (one) tablet by mouth every 6 hours as needed 2 Active Vit-Fe Fumarate-FA ( vitamin) 27-0.8 MG tablet Take 1 (one) tablet by mouth once daily Active clobetasol (Temovate) 0.05 % cream Apply to elbows and ankle twice daily. 30 days supply. 60 g 3 3 Active adalimumab (Humira Pen) 40 MG/0.4ML injectionIndic ations:Plaque psoriasis Inject 0.4 mL subcutaneously every 14 days 1 kit 5 3 Active Active Problems No known active problems Social History Tobacco Use Types Packs/Day Years Used Date Smoking Tobacco: Never Assessed Comments Unknown Sex and Gender Information Value Date Recorded Sex Assigned at Not on file Legal Sex Female 8:34 AM CDT Gender Identity Not on file Sexual Orientation Not on file Plan of Treatment Health Maintenance Due Date Last Done Comments HIV SCREENING 2002 HEPATITIS C SCREENING 05/31/2005 DTAP/TDAP/TD VACCINES (1 - Tdap) 2006 HEPATITIS B VACCINE (1 of 3 - 19+ 3-dose series) 2006 PAP SMEAR 2008 HPV VACCINE (1 - 3-dose SCDM series) 2014 DEPRESSION SCREENING 06/12/2024 COVID-19 VACCINE ( - season) 2025 INFLUENZA VACCINE (#1) 2025 2, 04/20/2020, 03/31/2020, Additional history exists ZOSTER VACCINE (1 of 2) 2037 HIB VACCINE Aged Out No longer eligi ble based on patient's age to complete this topic MENINGOCOCCAL (Group B) VACCINE SHARED DECISION-MAKING Aged Out No longer eligible based on patient's age to complete this topic MENINGOCOCCAL GROUPS A/C/Y/W VACCINE Aged Out No longer eligible based on patient's age to complete this topic PNEUMOCOCCAL VACCINE Aged Out No long er eligible based on patient's age to complete this topic Insurance [employer] * Guarantor: NEVAEH LERNER Account Type Relation to Patient Date of Phone Billing Address Personal/Family [address] [place] [address] SELF PAY NO INSURANCE Member Subscriber Plan / Payer (Ef fective for All Dates) Name:LernerNevaeh Member ID:Not on file Relation to Subscriber:Not on file Name:NEVAEH LERNER Subscriber ID:Not on file Address: [address] [place] [address] Payer ID:Not on file Group ID:Not on file Type:Self Pay Address: [facility] * Guarantor: NEVAEH LERNER Account Type Relation to Patient Date of Phone Billing Address Personal/Family [address] [place] [address] SELF PAY NO INSURANCE Member Subscriber Plan / Payer (Ef fective for All Dates) Name:Nevaeh Lerner Member ID:Not on file Relation to Subscriber:Not on file Name:NEVAEH LERNER Subscriber ID:Not on file Address: [address] [place] [address] Payer ID:Not on file Group ID:Not on file Type:Self Pay Address: [facility] * Guarantor: NEVAEH LERNER Account Type Relation to Patient Date of Phone Billing Address Personal/Family [address] [place] [address] SELF PAY NO INSURANCE Member Subscriber Plan / Payer (Ef fective for All Dates) Name:Nevaeh Lerner Member ID:Not on file Relation to Subscriber:Not on file Name:NEVAEH LERNER Subscriber ID:Not on file Address: [address] [place] [address] Payer ID:Not on file Group ID:Not on file Type:Self Pay Address: [facility] Care Teams Foam Machine Operator Relationship Specialty Start Date End Date Odalys Lane APRN-RAJINDER [address] [place] [address] PCP - General 06/01/22
--- OUTSIDE RECORDS SUMMARY | 2025-04-17 19:33 | XMS_ITS | Encounter Summary ---
Author Organization [facility] Address [facility] [place] [address] Care Team Providers Care Reinforcer Name Role Phone Odalys Lane NP Primary Care Provider [phone] Reason for Visit * Reason Onset Date Comments Information 04/17/2025 Encounter Details Date Type Department Care Team (Late st Contact Info) Description 04/17/2025 Telephone [facility] Medical [facility] Family Medicine [facility] [address] [phone] Odalys [address] NP [address] [phone] Information Social History Tobacco Use Types Packs/Day Years [...] PM CDT Legal Sex Female 8:25 AM SWITCH ENGINEER Gender Identity Female 10/09/2024 1:05 PM CDT Sexual Orientation Not on file documented as of this encounter Progress Notes * Eddi Lopez LPN - 04/17/2025 11:13 AM CST Patient is aware and will go through the ER to be evaluated. She is going to call back after to schedule a follow up with Odalys. CH ENGINEER * Odalys Lane NP - 04/17/2025 11:07 AM CST I prefer not outpatient testing with those symptoms and recommend she be evaluated today in the ED. IA * Odalys Lane NP - 04/17/2025 11:05 AM CST These are concerning symptoms I feel she would be better off in the ER first for evaluation and then I will see her next week for a follow up. CH ENGINEER * Luz Elena Stout MA - 04/17/2025 10:04 AM CST I called and spoke with the patient and her resting heart rate is between 95- 110. She gets tinglingin hands and feet, dizziness, and vision differs from day to day. She is requesting to be checked for MS. She can go over to [facility] today if you will place orders for labs and EKG please. IA * Odalys Lane NP - 04/17/2025 8:33 AM CST I just tried calling her since I had a minute but she did not grape picker. I would have eddi talk to her when she calls back to find out what all she has going on, how fast he heart rate is etc. I could order her an EKG to go get done at the hospital today and labs and then can follow up with her once back if I don't have any openings today and she may need more time if she has a lot of concerns. CH ENGINEER * Beatriz Schreiber - 04/17/2025 7:44 AM CST Images from the original note were not included. CH ENGINEER documented in this encounter Plan of Treatment Not on file documented as of this encounter Visit Diagnoses Not on filedocumented in this encounter Additional Health Concerns Assessment Noted Time PHQ-9 Depression Total Score: 1 05/06/20 24 8:12 AM SWITCH ENGINEER documented as of this encounter Care Teams Reinforcer Relationship Specialty Start Date End Date Odalys Lane NP [address] [place] [address] [place] [address] PCP - General NURSE PRACTITIONER 05/11/21 documented as of this encounter
--- OUTSIDE RECORDS SUMMARY | 2025-04-17 19:34 | XMS_ITS | Clinical Summary ---
Author Organization [facility] Address [address] [place] [address] Phone Care Team Providers Care Coastal Tug Mate Name Role Phone Romaine Oscar MD Primary Care Provider [phone]- [phone] Allergies No known active allergies Medications PNV [id number] 1-DSS-DHA ORAL Take by mouth. Active adalimumab (Humira,CF, Pen) 40 mg/0.4 mL Pen Injector Kit Inject 40 mg by subcutaneous injection every 2 weeks. Active ergocalciferol (VITAMIN D2) 200 mcg/mL (8,000 unit/mL) Drops Take 8,000 Units by mouth daily. Active OMEGA-3 FATTY ACIDS-FISH OIL ORAL Take by mouth. Activ e hydrOXYzine HCL (ATARAX) 25 mg tablet Take 1 Tablet (25 mg) by mouth every 6 hours as needed for Anxiety. 30 Tablet 2 02/21/2022 4:40 PM CDT 2 Active L. acidophilus/Bif id. animalis 32 billion cell Capsule Take 1 Tablet by mouth daily. Active hydrocortisone (PROCTOZONE-HC) 2.5 % cream with perineal applicator Insert rectally 2 times daily as needed for hemorrhoids. 30 Gram 2 3 Active acetaminophen (TYLENOL) 325 mg tablet Take 2 Tablets (650 mg) by mouth every 6 hours. 3 Active ibuprofen (MOTRIN) 600 mg tablet Take 1 Tablet (600 mg) by mouth every 6 hours. 3 Active clobetasoL (TEMOVATE) 0.05 % Cream APPLY TO ELBOWS AND ANKLES TWICE DAILY DIRECTED 60 Gram 3 09/13/2022 3:28 PM CDT 3 Active erythromycin (ILOTYCIN) 5 mg/gram (0.5 %) ointment Place into the left eye every 6 (six) hours for 10 days. 3.5 Gram 3 Active tretinoin (RETIN-A) 0.025 % Cream Apply a pea-sized amount at bedtime. Start 3 times weekly, then increase to nightly as tolerated. 45 Gram 3 08/15/2023 7:38 PM FORMATION FRACTURING OPERATOR 4 Active HYDROcodone-shobha taminophen (NORCO) 5-325 mg tablet Take 1 Tablet by mouth every 4 hours as needed. Max Daily Amount: 6 Tablets 12 Tablet 11/21/2023 9:47 AM CDT 4 Active risankizumab-rz aa (Skyrizi) 150 mg/mL Pen Injector 3 Active tretinoin (RETIN-A) 0.025 % Cream Apply a pea-sized amount at bedtime. Start 3 times weekly then increase to nightly as tolerated. 45 Gram 3 08/22/2024 6:09 PM CDT 5 Active tapinarof (Vtama) 1 % Cream Apply to affected area. Active Minoxidil 5 % Solution Apply to affected area. Active ALPRAZolam (XANAX) 0.25 mg tablet Take 1 tablet (0.25 mg total) by mouth nightly as needed for Anxiety (flight anxiety). 5 Tablet 10/09/2024 4:50 PM CDT 5 Active scopolamine (TRANSDERM-SCOP ) 1 mg/[address] 1 patch onto the skin every third day after removing old patch. 10 Patch 10/09/2024 4:50 PM CDT 5 Active azelastine (ASTELIN) 137 mcg/actuation nasal spray Administer 2 Sprays in each nostril daily. 30 mL 11 11/28/2024 11:29 AM CDT 5 Active buPROPion HCL (WELLBUTRIN XL) 150 mg Extended Release 24 hour tablet Take 1 Tablet (150 mg) by mouth daily. 90 Tablet 1 04/15/2025 5:00 PM FORMATION FRACTURING OPERATOR 5 Active hydrOXYzine HCL (ATARAX) 25 mg tablet Take 1 Tablet (25 mg) by mouth 3 times daily. 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, , Female 07/25/2022 arrhythmia affecting , antepartum 05/12/2022 Anxiety and depression 02/02/2022 Multigravida of advanced maternal age in third t rimester 02/02/2022 Anxiety 11/29/2019 Overview (11/29/2019): atarax Psoriasis 05/27/2019 Depression affecting 05/27/2019 Depression 05/27/2019 Pre-conception counseling 10/04/2018 Resolved Problems Problem Noted Date Diagnosed Date Resolved Date MIL- postdates 07/25/2022 07/25/2022 Encounter for induction of labor 11/29/2019 07/25/2022 Encounters Date Type Department Care Team Description 04/09/2025 External Device Data STL ABSTRACTION Provider, Abstract 02/18/2025 External Device Data STL ABSTRACTION Provider, Abstract 02/11/2025 External Device Data STL ABSTRACTION Provider, Abstract 01/29/2025 External Device Data STL ABSTRACTION Provider, Abstract 01/15/2025 External Device Data STL ABSTRACTION Provider, Abstract from Last 3 Months Immunizations Immunization Administration Dates Next Due (ADACEL/BOOSTRIX)(10 YR UP) TDAP VACCINE, 0.5ML, IM 04/26/2022,09/19/2019 INFLUENZA VACCINE QUADRIVALENT 6 MOS UP PF IM Influenza Seasonal Unspecified Formulation IM Influenza, Unspecified Formulation 04/20/2020, Family History Medical History Relation Name Comments Other Brother Rhett Lerner ADHD, depressio n, anxiety Cancer Father Boyd Lerner Kidney cancer Anxiety Mother Katherine Lerner Arthritis-rheumatoid Mother Katherine Lerner Depression Mother Katherine Lerner Other Mother Katherine Lerner RA, fibromyalg ia Other Sister Katiuska Lerner RA, ovarian cy sts, hysterectomy Relation Name Status Comments Brother Rhett Lerner Alive Daughter Alive Father Boyd Lerner Mother Katherine Lerner Alive Sister Katiuska Lerner Alive Social History Tobacco Use Types Packs/Day Years Used Date Smoking Tobacco: Never Smokeless Tobacco: Never Tobacco Cessation:Counseling Given: Not Answered Alcohol Use Standard Drinks/Week Comments Yes 0 (1 standard drink = 0.6 oz pur e alcohol) OCC Comments No Sex and Gender Information Value Date Recorded Sex Assigned at Not on file Legal Sex Female 1:33 PM CDT Gender Identity Not on file Sexual Orientation Not on file Last Filed Vital Signs Vital Sign Reading Time Taken Comments Blood Pressure 123/86 09/27/2024 1:28 PM CDT Pulse 77 09/27/2024 1:28 PM CDT Temperature 36.3 C (97.4 F) 09/27/2024 1:28 PM CDT Respiratory Rate 16 07/27/2022 6:55 AM FORMATION FRACTURING OPERATOR Oxygen Saturation 99% 09/27/2024 1:28 PM CDT Inhaled Oxygen Concentration - - Weight 80.7 kg (178 lb) 09/27/2024 1:28 PM CDT Height 157.5 cm (5' 2) 09/27/2024 1:28 PM CDT Body Mass Index 32.56 09/27/2024 1:28 PM CDT Plan of Treatment Health Maintenance Due Date Last Done Comments Pre-Diabetes and Diabetes Screening 1987 HEPATITIS B VACCINES (1 of 3 - 19+ 3-dose series) 2006 HPV VACCINES (1 - 3-dose SCD M series) 2014 INFLUENZA VACCINE (#1) 2025 , 03/04/2022, 03/31/2020, Additional history exists PAP SMEAR 09/28/2027 09/27/2024, 11/11, 10/07/2021, Additional history exists CERVICAL CANCER SCREENING 09/27/2029 HPV/Cotest (21-29) 09/27/2029 09/27/2024, 0 12/01/2022, 10/07/2021, Additional history exists HPV/Cotest (30-65) 09/27/2029 09/27/2024, 0 12/01/2022, 10/07/2021, Additional history exists DTAP/TDAP/TD VACCINES (4 - T d or Tdap) 04/26/2032 04/26/2022, 09/19/2019, 12/06/2001 Preventative Visit- Commercial Completed 0 09/27/2024, 05/06/2024, 12/01/2022, Additional history exists Procedures Procedure Name Priority Date/Time Associated Diagnosis Comments CERV/VAG CYTO AGE BASED SCREEN PAP Routine 09/27/2024 3:34 PM CDT Well woman exam with routine gynecological exam Screening for cervical cancer Screening for human papillomavirus (HPV) from Last 3 Months or Most Recently Relevant to Health Maintenance Results * CERV/VAG CYTO AGE BASED SCREEN PAP (09/27/2024 3:34 PM CDT) COMMENT (PAP): LuminaCare SolutionsOscar Mcwilliams Comment: This order for age-based cervical cancer and STI screening follows ACOG guidelines(PB 168, 140, JQU878). See individual assays for performing site location. CLINICAL INFORMATION Karolyn FanplayrOscar Mcwilliams Comment:None given LAST MENSTRUAL PERIOD Karolyn FanplayrOscar Mcwilliams Comment:NONE GIVEN PREV PAP: LuminaCare SolutionsOscar Mcwilliams Comment:NONE GIVEN PREV BX: LuminaCare SolutionsOscar Mcwilliams Comment:NONE GIVEN SOURCE LuminaCare SolutionsOscar Mcwilliams Comment:Endocervix ADEQUACY: Karolyn FanplayrOscar Mcwilliams Comment: Satisfactory for evaluation. Endocervical/transformation zone component present. Age and/or menstrual status not provided PAP INTERP Karolyn FanplayrOscar Mcwilliams Comment: Cytology Results: Negative for intraepithelial lesion or malignancy. COMMENT (PAP TEST) Q uest FanplayrOscar Mcwilliams Comment: This Pap test has been evaluated with computer assisted technology. BENZENE WORKER: Janice Mcwilliams Comment: MMD, CT(ASCP) CT Screening Location: [place] [address] REVIEW BENZENE WORKER: Karolyn FanplayrOscar Mcwilliams Comment: LMT, CT(ASCP) CT screening location: [place] [address] [place] [address] EXPLANATORY NOTE Que MEC DynamicsOscar Mcwilliams Comment: EXPLANATORY NOTE: The Pap is a screening test for cervical cancer. It is not a diagnostic test and is subject to false negative and false positive results. It is most reliable when a satisfactory sample, regularly obtained, is submitted with relevant clinical findings and history, and when the Pap result is evaluated along with historic and current clinical information. HPV E6/E7 Not Detected Not Detected LuminaCare SolutionsOscar Mcwilliams Comment: Methodology: Terrazzo Polisher Helper-Mediated Amplification This assay detects E6/E7 viral messenger RNA (mRNA) from 14 high-risk HPV types (16,18,31,33,35,39,45,51,52,56,58,59,66,68). Cervical sources are required for HPV testing. If a vaginal source from a patient who has had a total hysterectomy with removal of cervix was submitted, please contact the testing laboratory for alternative testing options. For additional information, please refer to http://education.SaleMove/faq/VZW023a0 (This link if provided for information/ educational purposes only.) Test Performed at: [address] [address] Reuben GUTIERREZ Genital SWAB OF ENDOCERVIX / Unknown 09/27/2024 3:34 PM CDT 09/30/2024 7:39 AM CDT Nakia Lynn MD PATHOLOGY/CYTOLOGY CIRA CHANDRA Final Result Performing Organization Address City/State/[facility] Co de Phone Number [facility] [phone] [address] from Last 3 Months or Most Recently Relevant to Health Maintenance Insurance [id number] [place] PLUS RX OPTUM RX Member Subscriber Plan / Payer (Ef fective for All Dates) Name:NEVAEH LERNER Relation to Subscriber:Self Name:Nevaeh Lerner Payer ID:Not on file Group ID:[id number] Type:RX Commercial Address: [place], [place] RX VARGAS PLANS (INTERNAL) [facility] Internal Plans Advance Directives For more information, please contact: [phone] * Full Code (Latest Code Status on File) Date Activated Date Inactivated Comments 07/26/2022 9:51 AM 07/27/2022 2:27 PM * Full Code Date Activated Date Inactivated Comments 07/25/2022 8:12 AM 07/26/2022 9:51 AM * Full Code Date Activated Date Inactivated Comments 11/30/2019 12:15 PM 12/02/2019 2:36 PM * Full Code Date Activated Date Inactivated Comments 11/29/2019 1:31 AM 11/30/2019 12:15 PM Care Teams Coastal Tug Mate Relationship Specialty Start Date End Date Romaine Oscar MD [address] [place] [phone] PCP - General Family Practice 12/06/19
[2025-04-17] MEDS: SODIUM CHLORIDE 0.9% IV 1,000 ML 999 ML IV CONT (19:40)
--- OUTSIDE RECORDS SUMMARY | 2025-04-17 21:10 | XMS_ITS | Encounter Summary ---
Author Organization [facility] Address [facility] [place] [address] Care Team Providers Care Low Raw Sugar Cutter Name Role Phone Odalys Lane NP Primary Care Provider +1 [phone] Encounter Details Date Type Department Care Team (Late st Contact Info) Description 03/27/2023 [employer] Message Enc [facility] Family Medicine - [place] [address] [facility] [address] [place] [phone], KATI [address] [place] [address] [place] [address] Liver Enzymes Social History Tobacco Use Types [...] PM CDT Legal Sex Female 8:25 AM BLIND SLAT STAPLING MACHINE OPERATOR Gender Identity Female 10/09/2024 1:05 PM CDT [...] documented as of this encounter Care Teams Low Raw Sugar Cutter Relationship Specialty Start Date End Date Odalys Lane NP [address] [place] [address] [place] [address] PCP - General NURSE PRACTITIONER 05/11/21 documented as of this encounter
--- OUTSIDE RECORDS SUMMARY | 2025-04-17 21:10 | XMS_ITS | Encounter Summary ---
Author Organization [facility] Address [facility] [place] [address] Care Team Providers Care Artificial Flowers Starcher Name Role Phone Odalys Lane NP Primary Care Provider [phone] [phone] Encounter Details Date Type Department Care Team (Late st Contact Info) Description 01/30/2024 Therapy Plan [facility] Physical Therapy [address] [place] [phone] Justina Javier, PT [address] [place], [place] [address] Social History Tobacco Use Types Packs/Day Years [...] PM CDT Legal Sex Female 8:25 AM PEDIATRIC DIETICIAN Gender Identity Female 10/09/2024 1:05 PM CDT [...] documented as of this encounter Care Teams Artificial Flowers Starcher Relationship Specialty Start Date End Date Odalys Lane NP [address] [place] [address] [place] [address] PCP - General NURSE PRACTITIONER 05/11/21 documented as of this encounter
--- OUTSIDE RECORDS SUMMARY | 2025-04-17 21:10 | XMS_ITS | Clinical Summary ---
Author Organization [facility] Address [address] [place] [address] Care Team Providers Care Public Information Relations Manager Name Role Phone Odalys Lane NP Primary Care Provider +1 -[phone] Allergies No known active allergies Medications Ergocalciferol 50 MCG (1999 UT) Tab Take 2,000 Units by mouth daily. Active [place]-3 Fatty Acids (FISH OIL BURP-LESS OR) Active [...] week. Assessment & Plan (05/06/2024 8:09 AM SECTION LEADER AND MACHINE SETTER): Continue to work on diet and lifestyle changes to help with weight loss. Ganglion cyst of dorsum of left wrist 03/06/2023 Panic attack 06/25/2021 Overview (05/06/2024): No recent panic attacks. Has PRN hydroXYZine that she does not need to use often Assessment & Plan (05/06/2024 8:13 AM SECTION LEADER AND MACHINE SETTER): Chronic condition is stable. No med changes need at this time. Resume HydroXYZine PRN. Tolerates well without side effects. Mixed anxiety and depressive disorder 05/27/2019 Overview (05/06/2024): Doing well with Bupropion 150 mg daily. Denies SI/HI. Denies side effects of medication. Assessment & Plan (05/06/2024 8:13 AM SECTION LEADER AND MACHINE SETTER): Chronic condition that is controlled. No changes needed at this time. Continue Wellbutrin XL 150mg daily. Psoriasis 05/27/2019 Overview (05/06/2024): Chronic condition. Follows with dermatology for management of her psoriasis. Currently very well-controlled with Skyrizi and Tapinarof cream. Assessment & Plan (05/06/2024 8:06 AM SECTION LEADER AND MACHINE SETTER): Chronic condition. Stable. Follows with dermatology for med management. Resolved Problems Problem Noted Date Diagnosed Date Resolved Date (spontaneous vaginal delivery) 07/25/2022 03/06/2023 arrhythmia affecting p regnancy, antepartum 05/12/2022 03/06/2023 Multigravida of advanced mat ernal age in third trimester 02/02/2022 03/06/2023 Anxiety 11/29/2019 03/06/2023 Overview (05/12/2021): atarax Encounters Date Type Department Care Team Description 04/17/2025 Telephone [facility] Family Medicine - [place] [address] [facility] [address] [place], [place] [id number] [address]ys [address] NP Information 01/23/2025 Scan MG [...] PM CDT Legal Sex Female 8:25 AM SECTION LEADER AND MACHINE SETTER Gender Identity Female 10/09/2024 1:05 PM CDT [...] Tdap) 04/26/2032 04/26/2022, 09/19/2019, 12/06/2001 PHQ-2 (Physician [place]) Completed 10/09/2024 Hepatitis A Vaccines Aged Out [...] Most Recently Relevant to Health Maintenance Insurance [facility] Care Teams Public Information Relations Manager Relationship Specialty Start Date End Date Odalys Lane NP [address] [place] [address] [place] [address] PCP - General NURSE PRACTITIONER 05/11/21
--- OUTSIDE RECORDS SUMMARY | 2025-04-17 21:10 | XMS_ITS | Encounter Summary ---
Author Organization [facility] Address [facility] [place] [address] Care Team Providers Care Smt Machine Operator Name Role Phone Odalys Lane NP Primary Care Provider [phone] [phone] Reason for Visit * Reason Onset Date Comments Information 04/17/2025 Encounter Details Date Type Department Care Team (Late st Contact Info) Description 04/17/2025 Telephone [facility] Family Medicine [facility] [phone] Od[address]ys Lane NP [address] [phone] Information Social History Tobacco Use Types Packs/Day [...] PM CDT Legal Sex Female 8:25 AM ORACLE ADF CONSULTANT Gender Identity Female 10/09/2024 1:05 PM CDT Sexual Orientation Not on file documented as of this encounter Progress Notes * Eddi Lopez LPN - 04/17/2025 11:13 AM CST Patient is aware and will go through the ER to be evaluated. She is going to call back after to schedule a follow up with Odalys. LE ADF CONSULTANT * Odalys Lane NP - 04/17/2025 11:07 [...] her next week for a follow up. LE ADF CONSULTANT * Luz Elena Stout MA - 04/17/2025 10:04 AM CST I called and spoke with the patient and her resting heart rate is between 95- 110. She gets tinglingin hands and feet, dizziness, and vision differs from day to day. She is requesting to be checked for MS. She can go over to [facility] today if you will place orders for labs and EKG please. IA * Odalys Lane NP - 04/17/2025 8:33 AM CST I just tried calling her since I had a minute but she did not pickle cutter. I would have eddi talk to her [...] if she has a lot of concerns. LE ADF CONSULTANT * Beatriz Schreiber - 04/17/2025 7:44 AM CST Images from the original note were not included. LE ADF CONSULTANT documented in this encounter Plan of Treatment Not on file documented as of this encounter Visit Diagnoses Not on filedocumented in this encounter Additional Health Concerns Assessment Noted Time PHQ-9 Depression Total Score: 1 05/06/20 24 8:12 AM ORACLE ADF CONSULTANT documented as of this encounter Care Teams Smt Machine Operator Relationship Specialty Start Date End Date Odalys Lane NP [address] [place] [address] PCP - General NURSE PRACTITIONER 05/11/21 documented as of this encounter
--- OUTSIDE RECORDS SUMMARY | 2025-04-17 21:10 | XMS_ITS | Clinical Summary ---
Author Organization [facility] Address [address] [place] [address] Phone Care Team Providers Care Political Organizer Name Role Phone Romaine Oscar MD Primary Care Provider +1- [phone] Allergies No known active allergies Medications PNV [id number] 1-DSS-DHA ORAL Take by mouth. Active adalimumab [...] tolerated. 45 Gram 3 08/15/2023 7:38 PM TRAIN CONTROL TECHNICIAN 4 Active HYDROcodone-shobha taminophen (NORCO) 5-325 mg [...] daily. 90 Tablet 1 04/15/2025 5:00 PM TRAIN CONTROL TECHNICIAN 5 Active hydrOXYzine HCL (ATARAX) 25 mg tablet Take 1 Tablet (25 mg) by mouth 3 times daily. 90 Tablet 3 04/11/2025 5:22 PM CDT Active Active Problems Problem Noted Date Diagnosed Date FAMILY SERVICES ASSISTANT, , Female 07/25/2022 arrhythmia affecting , antepartum [...] CDT Respiratory Rate 16 07/27/2022 6:55 AM TRAIN CONTROL TECHNICIAN Oxygen Saturation 99% 09/27/2024 1:28 PM CDT [...] PAP (09/27/2024 3:34 PM CDT) COMMENT (PAP): AviateOscar Mcwilliams Comment: This order for age-based cervical cancer and STI screening follows ACOG guidelines(PB 168, 140, [id number]). See individual assays for performing site location. CLINICAL INFORMATION Karolyn Lake Homes RealtyOscar Mcwilliams Comment:None given LAST MENSTRUAL PERIOD Karolyn [employer] RealtyOscar Mcwilliams Comment:NONE GIVEN PREV PAP: AviateOscar Mcwilliams Comment:NONE GIVEN PREV BX: AviateOscar Mcwilliams Comment:NONE GIVEN SOURCE AviateOscar Mcwilliams Comment:Endocervix ADEQUACY: Karolyn [employer] RealtyOscar Mcwilliams Comment: Satisfactory for evaluation. Endocervical/transformation zone component present. Age and/or menstrual status not provided PAP INTERP Karolyn [employer] RealtyOscar Mcwilliams Comment: Cytology Results: Negative for intraepithelial lesion or malignancy. COMMENT (PAP TEST) Q uest [employer] RealtyOscar Mcwilliams Comment: This Pap test has been evaluated with computer assisted technology. MARINE PAINTER: Janice Mcwilliams Comment: MMD, CT(ASCP) CT Screening Location: [place] [address] REVIEW MARINE PAINTER: Karolyn Lake [employer] RealtyOscar Mcwilliams Comment: LMT, CT(ASCP) CT screening location: [place] [address] [place] [address] EXPLANATORY NOTE Que xAdOscar Mcwilliams Comment: EXPLANATORY NOTE: The Pap is [...] information. HPV E6/E7 Not Detected Not Detected AviateOscar Mcwilliams Comment: Methodology: Conference Center Manager-Mediated Amplification This assay detects E6/E7 viral messenger RNA (mRNA) from 14 high-risk HPV types (16,18,31,33,35,39,45,51,52,56,58,59,66,68). Cervical sources are required for HPV testing. If a vaginal source from a patient who has had a total hysterectomy with removal of cervix was submitted, please contact the testing laboratory for alternative testing options. For additional information, please refer to http://education.Chilltime/faq/UBD711c0 (This link if provided for information/ educational purposes only.) Test Performed at: [address] [address] Reuben GUTIERREZ Genital SWAB OF ENDOCERVIX / Unknown 09/27/2024 3:34 PM CDT 09/30/2024 7:39 AM CDT Nakia Lynn MD PATHOLOGY/CYTOLOGY CIRA CHANDRA Final Result Performing Organization Address City/State/[facility] Co de Phone Number [facility] [phone] [address] from Last 3 Months or Most Recently Relevant to Health Maintenance Insurance [place] [address] [place] PLUS RX [employer]UM RX Member Subscriber Plan / Payer (Ef fective for All Dates) Name:NEVAEH LERNER Relation to Subscriber:Self Name:Nevaeh Lerner Payer ID:Not on file Group ID:[id number] Type:RX Commercial Address: [place], [place] RX VARGAS PLANS (INTERNAL) [facility] Internal Plans Advance Directives For more information, please contact: [phone] * Full Code (Latest Code Status on File) Date Activated Date Inactivated Comments 07/26/2022 9:51 AM 07/27/2022 2:27 PM * Full Code Date Activated Date Inactivated Comments 07/25/2022 8:12 AM 07/26/2022 9:51 AM * Full Code Date Activated Date Inactivated Comments 11/30/2019 12:15 PM 12/02/2019 2:36 PM * Full Code Date Activated Date Inactivated Comments 11/29/2019 1:31 AM 11/30/2019 12:15 PM Care Teams Political Organizer Relationship Specialty Start Date End Date Romaine Oscar MD [address] [place] [phone] PCP - General Family Practice 12/06/19
--- OUTSIDE RECORDS SUMMARY | 2025-04-17 21:10 | XMS_ITS | Clinical Summary ---
Author Organization [facility] Address [address] [place] [address] Care Team Providers Care Manager Highway Name Role Phone Odalys Lane [facility] Primary Care Provi nubia Source Comments [facility],non-owned Affiliates and Associated Physician Practices is amultiple site organization consisting of ambulatory clinics and hospital sitesin [place], [place], [place] and [place]. This disclosure is being madepursuant to the Care Everywhere program and may not contain all information available regarding this patient. Last updated 18.[facility] Allergies No known active allergies Medications * Be aware that medications may not be up to date on this document. Alwaysverify current medications with the patient. ASPIRIN 81 PO Take 1 tablet by mouth once daily Active Probiotic Product (Probiotic-10 Ultimate) CAPS Take 1 tablet by mouth once daily Active fish oil/omega-3 fatty acids (Promega;Cardi -[place] 3) 1000 MG capsule Take 1 (one) [...] Patient Date of Phone Billing Address Personal/Family [address] [place] [address] SELF PAY NO INSURANCE Member Subscriber Plan / Payer (Ef fective for All Dates) Name:LernerNevaeh Member ID:Not on file Relation to Subscriber:Not on file Name:NEVAEH LERNER Subscriber ID:Not on file Address: [address] [place] [address] Payer ID:Not on file Group ID:Not on file Type:Self Pay Address: [facility] * Guarantor: NEVAEH LERNER Account Type Relation to Patient Date of Phone Billing Address Personal/Family [address] [place] [address] SELF PAY NO INSURANCE Member Subscriber Plan / Payer (Ef fective for All Dates) Name:Nevaeh Lerner Member ID:Not on file Relation to Subscriber:Not on file Name:NEVAEH LERNER Subscriber ID:Not on file Address: [address] [place] [address] Payer ID:Not on file Group ID:Not on file Type:Self Pay Address: [facility] * Guarantor: NEVAEH LERNER Account Type Relation to Patient Date of Phone Billing Address Personal/Family [address] [place] [address] SELF PAY NO INSURANCE Member Subscriber Plan / Payer (Ef fective for All Dates) Name:Nevaeh Lerner Member ID:Not on file Relation to Subscriber:Not on file Name:NEVAEH LERNER Subscriber ID:Not on file Address: [address] [place] [address] Payer ID:Not on file Group ID:Not on file Type:Self Pay Address: [facility] Care Teams Manager Highway Relationship Specialty Start Date End Date Odalys Lane APRN-RAJINDER [address] [place] [address] PCP - General 06/01/22
--- NOTE | 2025-04-17 21:44 | ED_ITS ---
HPI - General Adult General Chief complaint: Arrhythmia/Palpitations Stated complaint: multiple medical complaints Time Seen by Provider: 04/17/25 14:39 History of Present Illness HPI narrative: 39-year-old female presenting with complaints of palpitations. Patient states her symptoms started about 2 weeks ago accompanied by numbness/tingling in her hands and feet, dry eyes, dizziness, vision changes, hair loss, and an increase in bowel movements. Patient denies nausea/vomiting, shortness of breath/chest pain, fevers/chills. Related Data Home Medications ?Medication ?Instructions ?Recorded ?Confirmed ?Last Taken ?Type bupropion HCl 150 mg 24 hr tablet, 150 mg PO QAM 12/0512/06/23 Unknown History extended release risankizumab-rzaa 180 mg/1.2 mL mg subcut 12/06/23 Unknown History (150 mg/mL) subcut wearable injector (Skyrizi) Allergies Allergy/AdvReac Type Severity Reaction Status Date / Time No Known Allergies Allergy Mild Verified 04/17/25 13:04 Review of Systems 2 Review of Systems: All systems reviewed & are unremarkable except as noted in HPI and below PMFSH Past Medical History Medical History (Updated 04/18/25 @ 00:01 by Jose Luis Hartman) Anxiety Psoriasis Surgical History Surgical History (Updated 12/06/23 @ 14:42 by Edilia Castellanos CMA) Hx laparoscopic cholecystectomy 11/20/23 Dr. Eder Godfrey Social History Social History (Updated 12/06/23 @ 14:42 by Edilia Castellanos [facility]) Do You Feel Safe in your Home?: Yes Lack of Transportation: No Lack of Food: Never True Current Housing: I Have Housing Concerned About Future Housing: No Difficulty Paying Gas/Electric Bills: No Difficulty Paying for Meds: No Currently Unemployed: No Education: Bachelor's Degree Difficulty w/ Childcare or Family Care: No Exam 2 Narrative: GENERAL: Anxious-appearing, well-nourished, and in mild distress. HEAD: Normocephalic, atraumatic. EYES: PERRLA and EOMI. ENT: Nares clear, no rhinorrhea or epistaxis. Mucous membranes moist. Oropharynx without tonsillar hypertrophy exudate or other lesions. Bilateral TMs pearly panchal non-bulging NECK: Supple. No adenopathy or masses. No carotid bruits or JVD CHEST: Clear to auscultation. No respiratory distress. No wheezes rales or rhonchi HEART: Tachycardic. No murmur heard. Normal peripheral pulses. ABDOMEN: Soft, nontender, nondistended, normal active bowel sounds. EXTREMITIES: Normal range of motion. No edema. SKIN: Warm, dry, no rash. NEURO: No focal deficits. Alert and oriented x3. PSYCH: Normal mood and affect Course Vital Signs Vital signs: Vital Signs Temperature 98.4 F 04/17/25 13:02 Pulse Rate 115 H 04/17/25 13:02 Respiratory Rate 20 04/17/25 13:02 Blood Pressure 165/86 H 04/17/25 13:02 Pulse Oximetry 99 04/17/25 13:02 Oxygen Delivery Room Air 04/17/25 13:02 Temperature 98.4 F 04/17/25 13:02 Pulse Rate 108 H 04/17/25 22:49 Respiratory Rate 18 04/17/25 22:49 Blood Pressure 133/65 04/17/25 22:49 Pulse Oximetry 98 04/17/25 22:49 Oxygen Delivery Room Air 04/17/25 13:02 Medical Decision Making MDM Narrative Medical decision making narrative: 39-year-old female presenting with complaints of palpitations. Patient states her symptoms started about 2 weeks ago accompanied by numbness/tingling in her hands and feet, dry eyes, dizziness, vision changes, hair loss, and an increase in bowel movements. Patient denies nausea/vomiting, shortness of breath/chest pain, fevers/chills. Upon my initial exam, patient is appears mildly anxious and is tachycardic. Patient had an elevated D-dimer subsequently ordered CTA which was negative for PE. All other labs were within normal limits except for low TSH which was less than 0.015 likely indicating hyperthyroidism. Patient remained comfortable throughout her stay and displayed no signs/symptoms of thyroid storm including fevers, hypertension, altered mental status, and severe GI symptoms. Answered all questions accordingly. Discussed continuation of treatment as an outpatient with the patient's primary care provider. Patient verbalized understanding and agreed with the treatment plan. Medical Records Medical records reviewed: Yes I reviewed the external patient's medical records. Vital Signs Vital Signs: Vital Signs Temperature 98.4 F 04/17/25 13:02 Pulse Rate 115 H 04/17/25 13:02 Respiratory Rate 20 04/17/25 13:02 Blood Pressure 165/86 H 04/17/25 13:02 Pulse Oximetry 99 04/17/25 13:02 Oxygen Delivery Room Air 04/17/25 13:02 Temperature 98.4 F 04/17/25 13:02 Pulse Rate 108 H 04/17/25 22:49 Respiratory Rate 18 04/17/25 22:49 Blood Pressure 133/65 04/17/25 22:49 Pulse Oximetry 98 04/17/25 22:49 Oxygen Delivery Room Air 04/17/25 13:02 Lab Data Lab results reviewed: Yes I reviewed the patient's lab results. 04/17/25 15:05 04/17/25 15:05 Labs: Lab Results 04/17/25 04/17/25 04/17/25 Range/Units 15:05 15:05 17:24 WBC 6.5 (4.5-10.0) K/mm3 RBC 4.95 (4.2-5.4) M/mm3 Hgb 13.2 (12.0-15.0) g/dL Hct 39.8 (37.0-47.0) % MCV 80.4 (80-100) fl MCH 26.7 (26-34) pg MCHC 33.2 (32-36) g/dl RDW 12.7 (11.5-14.5) % Plt Count 306 (150-375) k/mm3 MPV 9.4 (7.4-10.4) fl Immature Gran % (Auto) 0.2 (0-0.5) % Neut % (Auto) 47.0 (45.5-73.1) % Lymph % (Auto) 46.3 H (18.3-44.2) % [place] % (Auto) 6.0 (2.6-8.5) % Eos % (Auto) 0.2 (0-4.4) % Baso % (Auto) 0.3 (0.2-1.2) % Lymph # (Auto) 3.03 (0.9-3.2) K/mm3 [place] # (Auto) 0.4 (0.1-0.6) K/mm3 Eos # (Auto) 0.0 (0-0.3) K/mm3 Baso # (Auto) 0.0 (0.0-0.1) K/mm3 Abs Immat Gran (auto) 0.01 (0.00-0.031) K/mm3 Absolute Neuts (auto) 3.1 (1.3-6.7) K/mm3 Absolute Nucleated RBC 0.000 (0.0-0.012) K/mm3 Nucleated RBC % 0.0 (0.0-0.2) % PT 13.1 (11.1-14.7) Seconds INR 1.0 APTT 29.3 (22.3-36.8) Seconds D-Dimer 0.61 H Cancelled (<0.48) ug/mL Sodium 138 (137-145) mmol/L Potassium 3.8 (3.4-5.0) mmol/L Chloride 105 (98-107) mmol/L Carbon Dioxide 24 (22-30) mmol/L Anion Gap 9 (4-12) mmol/L BUN 9 (7-17) mg/dL Creatinine 0.48 L (0.7-1.0) mg/dL Estim Creat Clear Calc 132 ml/min Estimated GFR > 60 (59 - ) Glucose 91 (65-110) mg/dL Calcium 9.5 (8.4-10.2) mg/dL Total Bilirubin 0.4 (0.2-1.3) mg/dL AST 67 H (14-36) U/L ALT 101 H (6-35) U/L Alkaline Phosphatase 102 (38-126) U/L Troponin I < 0.012 (0.000-0.034) ng/mL Total Protein 7.7 (6.3-8.2) g/dL Albumin 4.4 (3.5-5.1) g/dL Lipase 60 (23-300) U/L TSH (Reflex) < 0.015 L (0.465-4.68) uIU/mL Free T4 4.09 H (0.78-2.19) ng/dL POC Urine HCG, Qual Negative (Negative) Imaging Data Attestation: I personally reviewed and interpreted this imaging study as follows: Radiologist's impression: ITS Impressions Chest X-Ray 04/17/25 15:29 Impression: No acute cardiopulmonary abnormality. Chest CTA 04/17/25 18:30 IMPRESSION: 1. No acute cardiopulmonary disease. No evidence for pulmonary embolism. Discharge Plan Discharge Clinical Impression: Low serum thyroid stimulating hormone (TSH) Patient Disposition: Home Condition: Stable Instructions: Hyperthyroidism (ED) Additional Instructions: Return to the emergency department if you experience fever, chest pain, shortness of breath, abdominal pain with nausea and vomiting, weakness, numbness/tingling, or any other symptoms that are concerning to you. Follow up with primary care doctor for further assessment and treatment. Patient Language: Congolese Prescriptions: No Action Skyrizi 180 mg/1.2 mL (150 mg/mL) wearable injector subcut bupropion HCl 150 mg tablet extended release 24 hr 150 mg PO QAM Follow-up/Referrals: UNKNOWN,DOCTOR [Primary Care Provider]
== END 2025-04-17 22:50 | disposition home or self-care (01) ==
PROVIDERS: Physician Assistant
DX: R94.6 Abnormal results of thyroid function studies (principal); L40.9 Psoriasis, unspecified; F41.9 Anxiety disorder, unspecified; Z90.49 Acquired absence of other specified parts of digestive tract; Z79.620 Long term (current) use of immunosuppressive biologic; Z79.899 Other long term (current) drug therapy
CPT/HCPCS: 36415; 71046; 71275; 80053; 81025; 83690; 84439; 84443; 84484; 85025; 85380; 85610; 85730; 93005; 96360; 99284; J7030; Q9967

== ENCOUNTER 2025-05-22 11:51 | Outpatient (CLI) | payer OTHER, SELFPAY ==
--- NOTE | ~2025-05-22 | US_ITS ---
EXAMINATION: US thyroid DATE: 05/22/2025 12:08 INDICATION: Hyperthyroidism TECHNIQUE: Multiple ultrasound images of the thyroid were obtained. COMPARISON: None. FINDINGS: The right thyroid lobe measures 5.3 x 2.1 x 2.0 cm. The left thyroid lobe measures 5.8 x 2.1 x 1.8 cm. 4 mm very hypoechoic likely cystic TI RADS 1 nodule in the right thyroid lobe. There are a couple solid wider than tall hyperechoic nodules with smooth to ill-defined margins in the left thyroid lobe. The larger nodule measures 8 mm with single echogenic focus is located in the superior left thyroid lobe (TI-RADS 4, moderately suspicious , FNA if >=1.5 cm, annual followup is >=1 cm) and the smaller without echogenic foci measuring 7 mm in the mid left thyroid (TI-RADS 3, mildly suspicious , FNA if >=2.5 cm, annual followup is >=1.5 cm). There is normal echotexture, echogenicity and vascular flow throughout the thyroid gland. IMPRESSION: 1. Multinodular goiter with no nodules meeting criteria for either biopsy or follow-up. Reviewed, dictated and finalized at location A. N PLANNER IMPRESSION: 1. Multinodular goiter with no nodules meeting criteria for either biopsy or fo llow-up.
== END 2025-05-22 11:52 | disposition home or self-care (01) ==
LOC: MICIMG 11:51
PROVIDERS: PCP Nurse Practitioner; Visit Provider Nurse Practitioner
DX: E04.2 Nontoxic multinodular goiter (principal)
CPT/HCPCS: 76536